=== PATIENT | male | born 1980 | race Caucasian/White ===

== ENCOUNTER 2020-12-04 19:31 | Emergency (ER) | payer SELFPAY ==
[~2020-12-04] VITALS: Ht 172.7 cm; Wt 76.0 kg
[2020-12-04] MEDS ORDERED: FLEXERIL5 M1 PO (21:43)
[2020-12-04] MEDS ORDERED: IBUPROFEN600 MG PO (21:43)
[2020-12-04 21:58] VITALS: BP 138/89
== END 2020-12-04 21:58 | disposition home or self-care (01) | DRG 563 ==
LOC: ED 19:31
DX: S43.402A Unspecified sprain of left shoulder joint, initial encounter (principal); X58.XXXA Exposure to other specified factors, initial encounter